=== PATIENT | male | born 2000 | race Two or more races ===

== ENCOUNTER 2024-10-23 22:07 | Emergency (ER) | payer MEDICAID, SELFPAY ==
[2024-10-23 22:11] VITALS: BMI 31.5
[2024-10-23 22:21] VITALS: BP 124/76; PULSE 84; RESP 18; TEMP 36.9; O2SAT 98
--- NOTE | 2024-10-23 22:41 | EDNOTE_ITS ---
ED Eye Problem RME/HPI General Stated complaint: L EYE IRRITA Time Seen by Provider: 10/23/24 22:19 Source: patient Arrival date/time: 10/23/24 22:07 This is a case of 33-year-old male with no medical history came into the emergency room due to painful lump on the left upper eyelid with redness and swelling for 2 days no eye pain no injury no trauma no blurring of vision persistence of the symptoms this patient decided to start consult here in the emergency room Limitations: no limitations Related Data Previous Rx's ?Medication ?Instructions ?Recorded erythromycin 5 mg/gram (0.5 %) eye 0.5 inch ophthalmic (eye) TID 10 10/23/24 ointment days #3.5 grams Allergies Allergy/AdvReac Type Severity Reaction Status Date / Time No Known Allergies Allergy Verified 10/23/24 22:14 Review of Systems Review of Systems Systems Reviewed: All systems reviewed, normal except as documented Constitutional Constitutional: Reports system reviewed and no additional complaints, except as documented and Reports as per HPI Eyes Eyes: Reports system reviewed and no additional complaints, except as documented, Reports as per HPI, Denies blind spots, Denies blurry vision, Denies change in vision, Denies decreased night vision, Denies diplopia, Denies eye discharge, Denies dry eyes, Denies exophthalmos, Denies floaters, Denies loss of vision and Denies other visual disturbances Cardiovascular Cardiovascular: Reports system reviewed and no additional complaints, except as documented and Reports as per HPI Respiratory Respiratory: Reports system reviewed and no additional complaints, except as documented and Reports as per HPI Musculoskeletal Musculoskeletal: Reports system reviewed and no additional complaints, except as documented and Reports as per HPI Neurologic Neurologic: Reports system reviewed and no additional complaints, except as documented, Reports as per HPI and Denies loss of vision Past Medical History Social History SMOKING STATUS: Never smoker ED Exam General Limitations: Present no limitations General appearance: Present alert, in no apparent distress and other (Patient is awake alert oriented not in distress nontoxic looking well-hydrated well- nourished) Head Head exam: Present atraumatic, normocephalic and normal inspection Eye Eye exam: Present normal appearance, PERRL, EOMI and other (PERRL EOM intact nor mal conjunctiva noted a stye redness swelling no discharge on the left upper eyelid suggestive of stye no foreign body no pappileedema no hyphema no palpebral cellulitis) ENT ENT exam: Present normal exam, normal oropharynx and mucous membranes moist Neck Neck exam: Present normal inspection, full ROM and trachea midline Chest Chest inspection: Present normal inspection and symmetric chest wall rise Respiratory Respiratory exam: Present normal lung sounds bilaterally; Absent respiratory distress, wheezes, stridor, accessory muscle use or prolonged expiratory phase Cardiovascular Cardiovascular exam: Present regular rate, normal rhythm and normal heart sounds; Absent bradycardia, tachycardia, irregular rhythm or systolic murmur Abdominal Exam Abdominal exam: Present soft and normal bowel sounds Extremities Exam Extremities exam: Present normal inspection and full ROM Back Exam Back exam: Present normal inspection and full ROM Neurological Exam Neurological exam: Present alert, oriented X3, CN II-XII intact, normal gait and reflexes normal; Absent motor sensory deficit Psychiatric Psychiatric exam: Present normal affect and normal mood Skin Skin exam: Present warm, dry, intact and normal color Course Quality Measures none Vital Signs Vital signs: Vital Signs Temperature 98.4 F 10/23/24 22:21 Pulse Rate 84 10/23/24 22:21 Respiratory Rate 18 10/23/24 22:21 Blood Pressure 124/76 10/23/24 22:21 Pulse Oximetry (%) 98 10/23/24 22:21 Oxygen Delivery Method Room Air 10/23/24 22:21 Patient is afebrile not tachycardic not tachypneic BP stable not hypoxic oxygen saturation is 98% in room air Eye MDM Narrative MDM Narrative:: This is a case of 33-year-old male with no medical history came into the emergency room due to painful lump on the left upper eyelid with redness and swelling for 2 days no eye pain no injury no trauma no blurring of vision persistence of the symptoms this patient decided to start consult here in the emergency room patient is awake alert oriented not in distress nontoxic looking well-hydrated well-nourished PERRL EOM intact noted a external hordeolum on the left upper eyelid the rest of the physical examination and neurological exam is normal patient was prescribed with erythromycin to be applied for 10 days on the left upper eyelid warm compresses also advised patient will follow-up with PCP in 2 days for evaluation return precaution in the ER for worsening symptoms was advised Patient was discharged with comfortable condition walking with stable gait. Patient verbalized no further complains explained diagnosis and answered patient question. Patient is comfortable with the proposed management plan including the need to follow up with his/her primary care physician and any specialist if applicable Discussed patient for any urgent condition or worsening sx, He/She needed to go to emergency room immediately or call 911. Patient acknowledge the responsibility to follow up as instructed and to monitor her/his symptoms. For any persistence of the symptoms for more than 3-5 days return precaution advised. Discussed the result of the test and was given printed discharge instruction Patient data External records reviewed:: [facility] previous records Clinical information provided by:: patient Social determinants that could affect healthcare access:: none Patient has the following chronic illnesses:: None How is presenting disease/condition affected by chronic disease/condition?: no chronic disease Evaluation data The following diagnostics were reviewed and interpreted by me:: other (specify) Lab and/or radiology exams considered but not ordered:: None Interpretation Summary: None Medications / Prescriptions Medications or Prescriptions considered but not ordered:: Given Medication administrations:: Given Consultations Consultation(s) initiated? (list below): No Diagnosis Eye Problem Differential Diagnosis: conjunctivitis, periorbital cellulitis and other (External hordeolum) Most likely diagnosis given after review of the tests above:: External hordeolum Admission Indicated Admission indicated?: not indicated Explain why admission is indicated or not indicated:: Not indicated Admission Request Was there a request for admission?: No Admission Attestation Admission request attestation: Not indicated Disposition Plan Disposition Plan: Discharge Discharge Attestation Discharge Attestation: The patient and all family members were given an opportunity to ask questions and understood the discharge instructions. Discharge instructions specifically effects, indications for sooner follow up or return to the emergency department, and the expected course of current diagnosis. Patient condition: Stable Discharge Plan Plan Patient Disposition: HOME (Self Care) Patient condition on transfer: Stable Prescriptions/Referrals Prescriptions/Med Rec: New erythromycin 5 mg/gram (0.5 %) ointment 0.5 inch ophthalmic (eye) TID 10 Days Qty: 3.5 0RF Rx Instructions: Applied to the upper and lower eyelid Problem List Clinical Impression: External hordeolum Patient/Caregiver Discharge Instructions Education Materials: ED Sty Additional Instructions: Follow-up with your primary care physician in 2 days for reevaluation worsening symptoms or any emergent concern call 911 or go to the nearest emergency room apply the medication as directed apply warm compress as directed Print Language: Kazakh Stand Alone Forms: Leah Award Info., Patient Portal Info Letter PA/SURFACE GRINDER Supervising Physician PA/SURFACE GRINDER Supervising Physician: dr hinton
== END 2024-10-23 22:32 | disposition home or self-care (01) ==
LOC: SERX 22:49
PROVIDERS: Emergency Provider Family Medicine
DX: H00.014 Hordeolum externum left upper eyelid (principal)
CPT/HCPCS: 99282